=== PATIENT | female | born 1995 | race Caucasian/White ===

== ENCOUNTER → 2019-06-06 16:03 | Outpatient (CLI) | payer MEDICAID, SELFPAY ==
[2019-06-06 16:56] LABS: Absolute Lymphocyte Count 1.99 X10^3/uL (0.83-4.51); Absolute Neutrophil Count 5.1 X10^3/uL (2.0-7.7); Basophil# 0.07 X10^3/uL; Basophil% 0.9 % (0-1); Eosinophil# 0.14 X10^3/uL; Eosinophils% 1.8 % (0-5); Hematocrit 43.5 % (37-47); Lymphocyte # 1.99 X10^3/ul (4.0); Mean Corp Hgb Conc 32.2 g/dL (32-36); Mean Corpuscular Hgb 29.7 pg (27.0-32.0); Mean Corpuscular Volume 92.2 fL (81-99); Mean Platelet Vol. 11.3 fl (6.2-12.0); Monocyte# 0.64 X10^3/uL; NRBC Flagged by Analyzer 0 % (0-5); Neutrophil # 5.08 X10^3/uL (2.7-7.7); Neutrophil % 63.8 % (47-70); Platelet Count 273 K/mm3 (150-450); RBC Distribution Width CV 13.7 % (11.6-14.6); RBC Distribution Width SD 46.3 fl (35.1-43.9); Red Blood Count 4.72 M/mm3 (4.2-5.4)
[2019-06-09 12:56] LABS: EBV Acute VCA IgM < 36.0 U/mL (0.0-35.9); EBV Early Antigen IgG <9.0 U/mL (0.0-8.9); EBV-VCA IgG 22.4 U/mL (0.0-17.9)
== END ==
PROVIDERS: Referring Provider Otolaryngology Otolaryngology/Facial Plastic Surgery; Visit Provider Otolaryngology Otolaryngology/Facial Plastic Surgery
DX: J03.90 Acute tonsillitis, unspecified (principal)
CPT/HCPCS: 36415; 85025; 86663; 86664; 86665; 87070

== ENCOUNTER → 2019-08-07 15:28 | Outpatient (CLI) | payer MEDICAID, SELFPAY ==
--- NOTE | 2019-08-07 12:43 | TONS_PTH ---
PATIENT: KONRAD GRIMM MCKENZIACCT #:[id number] LOC: [facility] U#:[id number] AGE/SX: ROOM: RE08/07/[address]: Dr. Grant Thornton MD : 1995 BED: DIS: SPEC #: [id number] RECD: 08/07/19 15:21 STATUS: ASHU JULI #: [id number] LAY: 08/07/19 12:[address]: Grant Thornton DEPT: SURGICAL PATHOLOGY RECD BY: Lewis Joseph ENTERED: 08/08/19 11:33 SP TYPE: TONSILS OTHR DR: No Primary Care Phys [facility] Tissues: Tonsil, NOS Procedures: Surgery Specimen Level III HEADER OPERATION: Tonsillectomy PRE-OP DIAGNOSIS: Chronic tonsillitis TISSUE SUBMITTED: Tonsils, right pinned MICROSCOPIC DIAGNOSIS Right and left tonsils, bilateral tonsillectomies: Benign lymphoid hyperplasia, consistent with chronic tonsillitis. AM:annmarie 08/09/19 MICROSCOPIC DESCRIPTION Slides are reviewed. GROSS DESCRIPTION Received is one container labeled with the patient's name and designated tonsils - pin on right are two tonsils that in aggregate weigh 7.8 gm. The right tonsil has a pin on it and measures 2.5 x 1.6 x 1 cm. The left tonsil measures 3 x 2 x 1 cm. Both tonsils are similar in appearance. The external surfaces are pink-magdaleno, smooth, glistening and somewhat lobulated. Focally they are hemorrhagic, granular and bear cautery artifact. Serial cross sections through the tonsils reveal normal tonsillar architecture. Sections are submitted in two cassettes as follows: 1 - right tonsil, 2 - left tonsil. / AM:annmarie 08/08/19 TC:5 CPT: 34354 x2
== END ==
LOC: LABSPEC 15:34
PROVIDERS: Referring Provider Otolaryngology; Visit Provider Otolaryngology
DX: J35.01 Chronic tonsillitis (principal)
CPT/HCPCS: 88304